=== PATIENT | male | born 1970 | race Caucasian/White ===

== ENCOUNTER → 2019-09-13 | Outpatient (CLI) | payer MEDICARE ==
--- NOTE | 2019-09-14 08:00 | REP ---
MRI LEFT SHOULDER: TECHNIQUE: Axial T2 fat sat, gradient echo, sagittal oblique T2 fat sat, coronal oblique T1, T2 fat sat. COMPARISON: 08/13/2016 at [facility]. There is again mild scattered ill-defined high-signal on T2 weighted images involving the supraspinatus tendon compatible with mild tendinopathy/tendonitis. This is similar to the prior study. No rotator cuff tear is seen. There re moderate hypertrophic degenerative changes of the acromioclavicular joint with subchondral marrow edema. Acromion is type 2. Biceps tendon is within the bicipital groove and no tenosynovitis. There is no Hill Sachs deformity. The deltoid muscle demonstrates no abnormal signal. Biceps labral complex is intact. There is no evidence of a labral tear. No paralabral cyst is seen. There is mild chondromalacia at the glenohumeral joint. There are several tiny subcortical cysts in the humeral head. There is no joint effusion. IMPRESSION: Essentially no change when compared to the prior study. Supraspinatus tendinopathy/tendonitis. No rotator cuff tear or labral tear. Moderate hypertrophic changes of the acromioclavicular joint, with type 2 acromion. Tiny subcortical change humeral head. Mild chondromalacia of the glenohumeral joint. Electronically Signed by Tono Geller MD 09/14/2019 05:34 P
== END ==
LOC: M RAD 16:40
PROVIDERS: ATTEND Orthopaedic Surgery Hand Surgery
DX: M75.42 Impingement syndrome of left shoulder (principal)